=== PATIENT | male | born 1955 | race Caucasian/White ===

== ENCOUNTER 2022-05-14 08:24 | Outpatient (CLI) | payer MEDICARE, SELFPAY ==
[2022-05-14 09:12] LABS: Basophils Absolute Auto 0.1 K/mm3 (0.0-0.1); Basophils Percent Auto 0.8 % (0.2-1.2); Eosinophils Absolute Auto 0.3 K/mm3 (0-0.3); Eosinophils Percent Auto 4.9 % (0-4.4); Hemoglobin 15.1 g/dL (14.0-18.0); Immature Granulocyte Absolute 0.01 K/mm3 (0.00-0.031); Immature Granulocyte Percent A 0.2 % (0-0.5); Lymphocytes Absolute Auto 1.66 K/mm3 (0.9-3.2); Lymphocytes Percent Auto 26.4 % (18.3-44.2); Mean Corpuscular HGB Conc 32.1 g/dl (32-36); Mean Corpuscular Hemoglobin 28.7 pg (26-34); Mean Corpuscular Volume 89.2 fl (80-100); Mean Platelet Volume 9.8 fl (7.4-10.4); Monocytes Absolute Auto 0.8 K/mm3 (0.1-0.6); Monocytes Percent Auto 11.9 % (2.6-8.5); Neutrophils Absolute Auto 3.5 K/mm3 (1.3-6.7); Neutrophils Percent Auto 55.8 % (45.5-73.1); Platelet Count Result 204 k/mm3 (150-375); Red Blood Count 5.27 M/mm3 (4.6-6.20); Red Cell Distribution Width 13.7 % (11.5-14.5); White Blood Count 6.3 K/mm3 (4.5-10.0)
[2022-05-14 09:25] LABS: Alanine Aminotransferase 28 U/L (6-50); Albumin Level 4.2 g/dL (3.5-5.1); Alkaline Phosphatase 76 U/L (38-126); Anion Gap 4 mmol/L (8-16); Aspartate Amino Transferase 31 U/L (17-59); Bilirubin,Total 0.6 mg/dL (0.2-1.3); Blood Urea Nitrogen 20 mg/dL (9-20); Carbon Dioxide 29 mmol/L (22-30); Chloride 107 mmol/L (98-107); Cholesterol 164 mg/dL (0-200); Estimated Glomerular Filt Rate 60; Glucose 94 mg/dL (65-110); HDL Direct 30 mg/dL; Potassium 4.1 mmol/L (3.4-5.0); Sodium 140 mmol/L (137-145); Triglycerides 117 mg/dL (<150)
[2022-05-14 09:36] LABS: LDL Cholesterol Direct 98 mg/dL
[2022-05-14 09:56] LABS: Prostate Specific Antigen 0.5 ng/mL (< OR = 4.0)
[2022-05-14 10:31] LABS: Folic Acid 12.4 ng/mL (2.76->20)
== END 2022-05-14 08:25 | disposition home or self-care (01) ==
LOC: ANHLAB 08:34
PROVIDERS: PCP Physician Assistant; Visit Provider Physician Assistant
DX: R53.83 Other fatigue (principal); Z12.5 Encounter for screening for malignant neoplasm of prostate; E78.5 Hyperlipidemia, unspecified; E55.9 Vitamin D deficiency, unspecified
CPT/HCPCS: 36415; 80053; 80061; 82306; 82607; 82746; 84153; 84443; 85025; G0103

== ENCOUNTER 2022-05-15 07:29 | Outpatient (CLI) | payer MEDICARE, SELFPAY ==
--- NOTE | 2022-05-15 07:45 | ECHO_ITS ---
Patient Info Name: Josue Easton Age: 67 years : 1955 Gender: Male Ht: 70 in Wt: 195 lbs BSA: 2.11 m2 HR: 73 bpm BP: 163 / 98 mmHg Heart Rhythm: Sinus Rhythm Technical Quality: Good Exam Date: 05/15/2022 7:59 AM Exam Location: [facility] Pulmonary Patient Status: Outpatient Admit Date: 05/15/2022 Staff Ordering Physician: Shaka Dykes PA-C Digital Associate Media Director: Lissa Paris RDCS Attending Provider: Shaka Dykes PA-C Referring Physician: Jania COONEY; Exam Type: CA echo doppler color flow Study Info Indications I25.110 - Atherosclerotic heart disease of [place] coronary artery with unstable angina pectoris Complete two-dimensional, color flow and Doppler transthoracic echocardiogram is performed. Summary 1. Complete two-dimensional, color flow and Doppler transthoracic echocardiogram is performed. 2. Left ventricular chamber dimension is normal. 3. Left ventricular systolic function is normal, estimated at 55-60%. 4. The left ventricular diastolic function is grade I diastolic dysfunction. 5. E/e' 8 is minimally elevated. 6. Global longitudinal strain is normal at -20.8%. 7. There is mild aortic valve sclerosis. 8. The mitral valve has mildly calcified annulus. 9. There is trace tricuspid valve regurgitation. 10. No pulmonary hypertension, estimated pulmonary arterial systolic pressure is 21 mmHg. 11. Dilated inferior vena cava with >50% collapse upon inspiration consistent with elevated right atrial pressure, 10 mmHg. Left Ventricle E/e' 8 is minimally elevated. Global longitudinal strain is normal at -20.8%. Left ventricular chamber dimension is normal. Left ventricular systolic function is normal, estimated at 55-60%. The left ventricular diastolic function is grade I diastolic dysfunction. Right Ventricle Right ventricular systolic function is normal and with normal TAPSE 2.4 cm. Right ventricular chamber dimension is normal. Left Atria Left atrial chamber dimension is normal. Right Atria Right atrial chamber dimension is normal. Aortic Valve The aortic valve is trileaflet. There is mild aortic valve sclerosis. There is no aortic valve stenosis. There is no aortic valve regurgitation. Pulmonic Valve There is no pulmonic regurgitation. Mitral Valve The mitral valve has mildly calcified annulus. There is no mitral valve stenosis. There is no mitral valve regurgitation. Tricuspid Valve There is trace tricuspid valve regurgitation. No pulmonary hypertension, estimated pulmonary arterial systolic pressure is 21 mmHg. Pericardium/Pleural There is no pericardial effusion. Inferior Vena Cava Dilated inferior vena cava with >50% collapse upon inspiration consistent with elevated right atrial pressure, 10 mmHg. Aorta The aortic root size at the sinus of Valsalva is normal. Left Ventricular Outflow Tract Name Value Normal LVOT Doppler LVOT Peak Gradient 3 mmHg LVOT Mean Gradient 2 mmHg LVOT VTI 19 cm LVOT VTI/AV VTI Ratio 0.6 Pulmonic Valve Name
== END 2022-05-15 07:30 | disposition home or self-care (01) ==
LOC: ANHCARD 07:30
PROVIDERS: PCP Physician Assistant; Visit Provider Physician Assistant
DX: I25.10 Atherosclerotic heart disease of native coronary artery without angina pectoris (principal)
CPT/HCPCS: 93306

== ENCOUNTER 2022-10-29 09:10 | Outpatient (CLI) | payer MEDICARE, SELFPAY ==
--- NOTE | ~2022-10-29 | NM_ITS ---
EXAMINATION: NM catie stress w perfusion DATE: 10/29/2022 11:26 INDICATION: Chest pain, unspecified. TECHNIQUE: Rest images were obtained following intravenous administration of 10.6 mCi Tc99m tetrofosm in (Myoview). The patient was infused intravenously with Lexiscan (regadenoson). Then, 32.7 mCi Tc99m tetrofosmin (Myoview) was administered intravenously, and stress images were obtained. Data was kelly nstructed into short axis and horizontal and vertical long axis SPECT images. Gated SPECT images were also obtained. COMPARISON: None. FINDINGS: There is no definite reversible or fixed perfusion abnormality to suggest ischemia or infar ction. There is no segmental wall motion abnormality. Left ventricular ejection fraction measures 6 4%. IMPRESSION: 1. No definite ischemia or infarct. 2. Normal left ventricular ejection fraction measuring 64%. Reviewed, dictated and finalized at location A.
--- NOTE | 2022-10-29 09:20 | EST_ITS ---
Patient Info Name: Josue Easton Age: 67 years : 1955 Gender: Male Ht: 70 in Wt: 198 lbs BSA: 2.12 m2 HR: 47 bpm BP: 130 / 79 mmHg Heart Rhythm: Sinus Rhythm Exam Date: 10/29/2022 10:32 AM Exam Location: [facility] Stress Patient Status: Outpatient Admit Date: 10/29/2022 Staff Ordering Physician: Zak Bradley DO Attending Provider: Zak Bradley DO Exercise Technologist: Denise Morales CT Exam Type: CA stress catie w NM Study Info Indications R07.89 - Other chest pain A regadenoson stress test was performed. Summary 1. 1. Negative lexiscan stress test for ischemic ST changes by ECG criteria. 2. 2. Stable hemodynamics throughout the test. 3. 3. Nuclear scan to follow and will be reported separately. Please correlate with it. 4. 4. Patient informed of the above results. Protocol: Lexiscan Stress ECG Details Stage: REST Duration (min): 1 min : 4 sec HR (bpm): 50 SBP (mmHg): 130 DBP (mmHg): 79 Stage: REST Duration (min): 6 min : 51 sec HR (bpm): 52 SBP (mmHg): 130 DBP (mmHg): 79 Stage: STAGE 1 Duration (min): 1 min : 0 sec HR (bpm): 70 SBP (mmHg): 130 DBP (mmHg): 79 Stage: RECOVERY Duration (min): 1 min : 0 sec HR (bpm): 77 SBP (mmHg): 130 DBP (mmHg): 79 Stage: RECOVERY Duration (min): 2 min : 0 sec HR (bpm): 79 SBP (mmHg): 126 DBP (mmHg): 80 Stage: RECOVERY Duration (min): 2 min : 59 sec HR (bpm): 76 SBP (mmHg): 145 DBP (mmHg): 82 Rest HR: 52 bpm Peak HR: 80 bpm Rest Sys BP: 130 mmHg Peak Sys BP: 145 mmHg Max Pred HR: 151 bpm % Max Pred HR: 53 % Target HR: 128 bpm Max RPP: 11,600 bpm*mmHg Termination Reason: Completed protocol Cardiac Symptoms: Shortness of breath Total Time: 1 min : 0 sec Rest Khan BP: 79 mmHg Peak Khan BP: 82 mmHg Total Dose: 0.4 mg Resting ECG Sinus bradycardia, first degree AV block, RBBB, cannot r/o septal infarct. Stress ECG No ST changes. Arrhythmias None. Report Signatures
== END 2022-10-29 09:11 | disposition home or self-care (01) ==
PROVIDERS: PCP Physician Assistant; Visit Provider Internal Medicine Cardiovascular Disease
DX: R07.9 Chest pain, unspecified (principal)
CPT/HCPCS: 78452; 93017; A9502; J2785

== ENCOUNTER 2024-07-23 06:58 | Emergency (ER) | payer MEDICARE, SELFPAY ==
[2024-07-23] VITALS (8 sets, daily range): BP systolic 128–194; BP diastolic 60–85; PULSE 37–97; RESP 14–23; TEMP 36.8; O2SAT 96–100
[2024-07-23] MEDS: SODIUM CHLORIDE 0.9% IV 1,000 ML 999 ML IV CONT (08:09)
[2024-07-23 08:14] LABS: Alveolar/Arterial O2 Gradient 37.9 mmHg; Base Excess ABG -3.2 mEq/l (+/-2.0); Device ROOM AIR; Fractional Inspired Oxygen 21 %; HCO3 ABG 20.7 mEq/l (22.0-26.0); Modified Allen's Test Pass; Oxygen Content ABG 18.4 %vol (16.0-22.0); Oxygen Saturation ABG 94.5 % (95.0-100.0); Oxyhemoglobin 90.9 % THb (90.0-100.0); PO2 ABG 71.1 mmHg (80.0-100.0); PO2 FiO2 Ratio Arterial Blood 3.39 %; Site Drawn RIGHT RADIAL; Total Hemoglobin 14.4 g/dL (12.0-18.0); pH ABG 7.403 (7.350-7.450)
--- NOTE | 2024-07-23 08:17 | ED.GENADULT ---
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 Patient says the visual hallucinations started several days ago. He describes them as white lights colors, sometimes they are vivid like dogs or corn alexander. The patient is aware that they are not real. While they are not particularly distressing he does not like them. The patient has no current complaints such as fevers chills headache, trauma, chest pain, difficulty breathing, abdominal pain, urinary symptoms, nausea vomiting or diarrhea. Related Data Home Medications ?Medication ?Instructions ?Recorded ?Confirmed ?Last Taken ?Type cholecalciferol (vitamin D3) 25 25 mcg PO DAILY 05/01/22 12/14/22 Unknown History mcg (1,000 unit) capsule krill oil 500 mg capsule mg PO 05/01/22 12/14/22 Unknown History aspirin 81 mg tablet,delayed 81 mg PO DAILY 12/14/22 12/14/22 Unknown History release (Adult Aspirin Regimen) Allergies Allergy/AdvReac Type Severity Reaction Status Date / Time No Known Allergies Allergy Verified 07/23/24 07:16 [facility] Past Medical History Medical History Choroideremia Bilateral tinnitus Heart disease Coronary artery disease Anxiety Family History Family History Father Heart disease Mother Blind Social History Social History Smoking packs per day: 0.25 Smoking cigarettes per day: 5.0 Years smoked: 30 Smoking pack-years: 7.50 Smoking status: Current every day smoker Alcohol intake: current Substance use: unknown Substance use type: does not use Lack of Transportation: No Lack of Food: Never True Current Housing: I Have Housing Concerned About Future Housing: No Difficulty Paying Gas/Electric Bills: No Difficulty Paying for Meds: No Currently Unemployed: No Education: Trade/Vocational Certificate Difficulty w/ Childcare or Family Care: No Exam Narrative: APPEARANCE: No apparent distress. A&O x3 Head: atraumatic. EYES: EOMI, NOSE: Atraumatic NECK: Trachea midline RESPIRATORY: No increased rate of breathing clear to auscultation CARDIOVASCULAR: Irregular, no peripheral edema ABDOMINAL: Non-distended soft nontender MUSCULOSKELETAl: No obvious deformities NEURO: Alert. Patient is blind cranial nerves 3 4 and 6 not assessed. The rest the cranial nerves are grossly intact Sensation light touch, motor function, cerebellar function intact for 4 extremities. Gait exam was deferred SKIN:: Warm, dry. Normal color PSYCHIATRIC: Normal affect Course Vital Signs Vital signs: Vital Signs Temperature 98.2 F 07/23/24 07:03 Pulse Rate 73 07/23/24 07:03 Respiratory Rate 18 07/23/24 07:03 Blood Pressure 192/60 H 07/23/24 07:03 Pulse Oximetry 100 07/23/24 07:03 Oxygen Delivery Room Air 07/23/24 07:03 Temperature 98.2 F 07/23/24 07:03 Pulse Rate 37 L 07/23/24 11:57 Respiratory Rate 18 07/23/24 11:57 Blood Pressure 152/76 H 07/23/24 11:57 Pulse Oximetry 98 07/23/24 11:57 Oxygen Delivery Room Air 07/23/24 07:03 Medical Decision Making [facility] Narrative Medical decision making narrative: -Course: 69-year-old blind male presenting with vivid hallucinations. His neurologic exam outside of his blindness is normal. He has no other neurologic symptoms or evidence of stroke. His CT head was unremarkable. His infectious workup was negative. Tox panel was significant for cannabinoids but no other findings. 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 No intervention at this time. Patient has close follow-up with his ethnoarchaeology professor and will be given follow-up with a neurologist as well. Incidentally the patient was found have a Mobitz type 2 heart block. He has not had any lightheadedness or syncope. The patient does not want to be transferred today to get a pacemaker placed. I discussed this with his concrete paving supervisor Dr. Bradley who will help him arrange appropriate follow-up. Patient will be leaving against medical advice due to his high grade AV block. When asked why he wouldn't wait for transfer patient states that his quality of life is poor due to his blindness. He does not want to be in the hospital any longer. He understands that his heart could stop if he does not get a pacemaker placed. -DDX includes but is not limited to: Delirium due to infection, dementia, Jose Elias Bonnet syndrome -Co-morbidities complicating care: choroidemia, htn Vital Signs Vital Signs: Vital Signs Temperature 98.2 F 07/23/24 07:03 Pulse Rate 73 07/23/24 07:03 Respiratory Rate 18 07/23/24 07:03 Blood Pressure 192/60 H 07/23/24 07:03 Pulse Oximetry 100 07/23/24 07:03 Oxygen Delivery Room Air 07/23/24 07:03 Temperature 98.2 F 07/23/24 07:03 Pulse Rate 37 L 07/23/24 11:57 Respiratory Rate 18 07/23/24 11:57 Blood Pressure 152/76 H 07/23/24 11:57 Pulse Oximetry 98 07/23/24 11:57 Oxygen Delivery Room Air 07/23/24 07:03 Lab Data 07/23/24 08:21 07/23/24 08:21 Labs: Lab Results 07/23/24 07/23/24 Range/Units 08:21 11:17 WBC 6.1 (4.5-10.0) K/mm3 RBC 4.97 (4.6-6.20) M/mm3 Hgb 14.2 (14.0-18.0) g/dL Hct 44.0 (42.0-52.0) % MCV 88.5 (80-100) fl MCH 28.6 (26-34) pg MCHC 32.3 (32-36) g/dl RDW 14.1 (11.5-14.5) % Plt Count 165 (150-375) k/mm3 MPV 10.9 H (7.4-10.4) fl Immature Gran % (Auto) 0.3 (0-0.5) % Neut % (Auto) 66.8 (45.5-73.1) % Lymph % (Auto) 17.3 L (18.3-44.2) % Monroe % (Auto) 10.5 H (2.6-8.5) % Eos % (Auto) 4.4 (0-4.4) % Baso % (Auto) 0.7 (0.2-1.2) % Lymph # (Auto) 1.05 (0.9-3.2) K/mm3 Monroe # (Auto) 0.6 (0.1-0.6) K/mm3 Eos # (Auto) 0.3 (0-0.3) K/mm3 Baso # (Auto) 0.0 (0.0-0.1) K/mm3 Abs Immat Gran (auto) 0.02 (0.00-0.031) K/mm3 Absolute Neuts (auto) 4.1 (1.3-6.7) K/mm3 Absolute Nucleated RBC 0.000 (0.0-0.012) K/mm3 Nucleated RBC % 0.0 (0.0-0.2) % PT 14.1 (11.1-14.7) Seconds INR 1.0 APTT 29.9 (22.3-36.8) Seconds Sodium 140 (137-145) mmol/L Potassium 4.4 (3.4-5.0) mmol/L Chloride 109 H (98-107) mmol/L Carbon Dioxide 24 (22-30) mmol/L Anion Gap 7 (4-12) mmol/L BUN 28 H (9-20) mg/dL Creatinine 1.19 (0.7-1.3) mg/dL Estim Creat Clear Calc 52 ml/min Estimated GFR 60 (59 - ) Glucose 96 (65-110) mg/dL Lactic Acid 0.8 (0.7-2.0) mmol/L Calcium 8.9 (8.4-10.2) mg/dL Phosphorus 3.7 (2.5-4.5) mg/dL Magnesium 1.9 (1.6-2.3) mg/dL Total Bilirubin 0.8 (0.2-1.3) mg/dL AST 25 (17-59) U/L ALT 23 (6-50) U/L Alkaline Phosphatase 80 (38-126) U/L Troponin I < 0.012 < 0.012 (0.000-0.034) ng/mL NT-Pro-B Natriuret Pep 1010 H (19.9-100) pg/mL Total Protein 7.0 (6.3-8.2) g/dL Albumin 3.7 (3.5-5.1) g/dL Lipase 467 H (23-300) U/L TSH (Reflex) 1.870 (0.465-4.68) uIU/mL Urine Color Yellow (Yellow) Urine Appearance Clear (Clear) Urine pH 5.5 (5.0-9.0) Ur Specific [place] 1.024 (1.001-1.035) Urine Protein 1+ H (Negative) mg/dL Urine Glucose (UA) Negative (Negative) mg/dL Urine Ketones Negative (Negative) mg/dL Ur Blood (Man) Trace (Negative) Urine Nitrate Negative (Negative) Urine Bilirubin Negative (Negative) Urine Urobilinogen 0.2 (<2.0) mg/dL Leukocyte Esterase Rfl Negative (Negative) SAYDA/UL Urine RBC 3-5 H (0-2) /hpf Urine WBC 0-5 (0-3) /hpf Ur Squamous Epith Cells None seen (Few) /hpf Urine Bacteria None seen /hpf Urine Casts 0-2 Urine Opiates Screen Negative (Negative) Urine Methadone Screen Negative (Negative) Ur Barbiturates Screen Negative (Negative) Ur Phencyclidine Scrn Negative (Negative) Ur Amphetamine Screen Negative (Negative) U Benzodiazepines Scrn Negative (Negative) Urine Cocaine Screen Negative (Negative) U Cannabinoids Screen Positive A (Negative) Ethyl Alcohol < 10 (<10) mg/dL Influenza A (RT-PCR) Negative (Negative) Influenza B (RT-PCR) Negative (Negative) RSV (RT-PCR) Negative (Negative) SARS-CoV-2 RNA (RT-PCR) Negative (Negative) ABG Data ABG results: 07/23/24 08:06 Puncture Site Right radial ABG pH 7.403 ABG pCO2 34.0 L ABG pO2 71.1 L ABG PO2/FiO2 Ratio 3.39 ABG HCO3 20.7 L ABG O2 Saturation 94.5 L ABG O2 Content 18.4 ABG Base Excess -3.2 A-a Gradient 37.9 Oxyhemoglobin 90.9 Total Hemoglobin 14.4 O2 Delivery Device Room air O2 Liters/Min Not Reportable FiO2 21 Discharge Plan Discharge Clinical Impression: Hallucinations, Jose Elias Bonnet syndrome, AV block, Mobitz II Patient Disposition: Left Against Medical Advice Condition: Guarded Prognosis Instructions: Heart Block (ED), Nonpsychiatric Hallucinations (ED) Additional Instructions: You were seen in the emergency department for hallucinations. Your workup here including CT of the head, laboratory studies, and infectious workup were negative. I believe this is Jose Elias Bonnet syndrome. Please follow-up with your ethnoarchaeology professor and the neurologist listed below for further workup. You were also found have a Mobitz 2 heart block. I recommended transfer for immediate pacemaker placement and you have declined. You have an increased risk of sudden cardiac . Please call Dr. Bradley immediately to arrange appropriate follow-up. If you develop dizziness, lightheadedness, or fainting please return to the ED for re-evaluation immediately. Please STOP your metoprolol. Dr. Bradley can prescribe and different hypertension medication. Patient Language: Singaporean Prescriptions: No Action krill oil 500 mg capsule PO cholecalciferol (vitamin D3) 25 mcg (1,000 unit) capsule 25 mcg PO DAILY aspirin [Adult Aspirin Regimen] 81 mg tablet,delayed release (DR/EC) 81 mg PO DAILY metoprolol tartrate 25 mg tablet See Rx Instructions .ROUTE .COMPLEX Qty: 180 2RF Dose Instruction: TAKE 1 TABLET BY MOUTH TWICE DAILY Rx Instructions: TAKE 1 TABLET BY MOUTH TWICE DAILY atorvastatin 40 mg tablet See Rx Instructions .ROUTE .COMPLEX Qty: 90 2RF Dose Instruction: TAKE 1 TABLET BY MOUTH DAILY Rx Instructions: TAKE 1 TABLET BY MOUTH DAILY Follow-up/Referrals: Zak Bradley DO [Physician] - 1 Day (Mobitz II) Kelly Dodd MD [Physician] - 1 Week (Hallucinations) Andre Steen DO [Primary Care Provider] -
[2024-07-23 08:30] LABS: Basophils Percent Auto 0.7 % (0.2-1.2); Eosinophils Absolute Auto 0.3 K/mm3 (0-0.3); Eosinophils Percent Auto 4.4 % (0-4.4); Hemoglobin 14.2 g/dL (14.0-18.0); Immature Granulocyte Absolute 0.02 K/mm3 (0.00-0.031); Immature Granulocyte Percent A 0.3 % (0-0.5); Lymphocytes Absolute Auto 1.05 K/mm3 (0.9-3.2); Lymphocytes Percent Auto 17.3 % (18.3-44.2); Mean Corpuscular HGB Conc 32.3 g/dl (32-36); Mean Corpuscular Hemoglobin 28.6 pg (26-34); Mean Corpuscular Volume 88.5 fl (80-100); Mean Platelet Volume 10.9 fl (7.4-10.4); Monocytes Absolute Auto 0.6 K/mm3 (0.1-0.6); Monocytes Percent Auto 10.5 % (2.6-8.5); Neutrophils Absolute Auto 4.1 K/mm3 (1.3-6.7); Neutrophils Percent Auto 66.8 % (45.5-73.1); Platelet Count Result 165 k/mm3 (150-375); Red Blood Count 4.97 M/mm3 (4.6-6.20); Red Cell Distribution Width 14.1 % (11.5-14.5); White Blood Count 6.1 K/mm3 (4.5-10.0)
[2024-07-23 08:39] LABS: Add Urine Microscopic? YES; Appearance Urine Clear (Clear); Bacteria Urine None Seen /hpf; Bilirubin Urine Negative (Negative); Blood Urine Trace (Negative); Color Urine Yellow (Yellow); Glucose Urine UA Negative (Negative); Ketones Urine Negative (Negative); Leukocyte Esterase Ur Negative LEU/UL (Negative); Nitrate Urine Negative (Negative); Non Pathogenic Casts 0-2; Protein Urine 1+ mg/dL (Negative); Specific Grav Ur 1.024 (1.001-1.035); Squamous Epithelial Cell Urine None Seen /hpf (Few); Urobilinogen Urine 0.2 mg/dL (<2.0); WBC Urine 0-5 /hpf (0-3); pH Urine 5.5 (5.0-9.0)
[2024-07-23 08:40] LABS: Alanine Aminotransferase 23 U/L (6-50); Albumin Level 3.7 g/dL (3.5-5.1); Alkaline Phosphatase 80 U/L (38-126); Anion Gap 7 mmol/L (4-12); Aspartate Amino Transferase 25 U/L (17-59); Bilirubin,Total 0.8 mg/dL (0.2-1.3); Blood Urea Nitrogen 28 mg/dL (9-20); Calcium 8.9 mg/dL (8.4-10.2); Carbon Dioxide 24 mmol/L (22-30); Chloride 109 mmol/L (98-107); Estimated CRCL calculation 52 ml/min; Estimated Glomerular Filt Rate 60; Glucose 96 mg/dL (65-110); Lactic Acid Reflex 0.8 mmol/L (0.7-2.0); Lipase 467 U/L (23-300); Magnesium 1.9 mg/dL (1.6-2.3); Phosphorus 3.7 mg/dL (2.5-4.5); Potassium 4.4 mmol/L (3.4-5.0); Sodium 140 mmol/L (137-145)
[2024-07-23 08:41] LABS: Ethanol < 10 mg/dL (<10)
[2024-07-23] MEDS: hydrALAZINE HCL 20 MG/ML VIAL 10 MG IV PUSH (08:41)
[2024-07-23 08:44] LABS: Prothrombin Time 14.1 Seconds (11.1-14.7)
[2024-07-23 08:45] LABS: Partial Thromboplastin Time 29.9 Seconds (22.3-36.8)
[2024-07-23 08:51] LABS: Amphetamine Screen Urine Negative (Negative); Barbiturate Screen Urine Negative (Negative); Benzodiazepines Screen Urine Negative (Negative); Cannabinoid Screen Urine Positive (Negative); Cocaine Screen Urine Negative (Negative); Methadone Screen Urine Negative (Negative); Opiate Screen Urine Negative (Negative); Phencyclidine Screen Urine Negative (Negative)
[2024-07-23 09:06] LABS: Influenza A QL RT-PCR Negative (Negative); Influenza B QL RT-PCR Negative (Negative); RSV RNA, RT-PCR Negative (Negative); SARS-CoV-2 RNA PCR Negative (Negative)
[2024-07-23 09:13] LABS: NT Pro B Type Natriuretic Pept 1010 pg/mL (19.9-100); Troponin I < 0.012 ng/mL (0.000-0.034)
--- NOTE | 2024-07-23 11:31 | PC.NURSE ---
Patient considering leaving AMA. This RN and Dr Flores went over risks of leaving. Patient states he would like some time to speak with his . I informed patient I will come back and check on him and his decision after giving him time.
[2024-07-23 11:52] LABS: Troponin I < 0.012 ng/mL (0.000-0.034)
== END 2024-07-23 12:27 | disposition left against medical advice (07) ==
PROVIDERS: Emergency Provider Emergency Medicine; PCP Internal Medicine
DX: H53.16 Psychophysical visual disturbances (principal); I44.1 Atrioventricular block, second degree; H31.2 Hereditary choroidal dystrophy; I10 Essential (primary) hypertension; I25.10 Atherosclerotic heart disease of native coronary artery without angina pectoris; F17.210 Nicotine dependence, cigarettes, uncomplicated; I45.10 Unspecified right bundle-branch block; R00.1 Bradycardia, unspecified; I44.2 Atrioventricular block, complete
CPT/HCPCS: 36415; 36600; 70450; 71045; 80053; 80307; 81001; 82077; 82805; 83605; 83690; 83735; 83880; 84100; 84443; 84484; 85018; 85025; 85610; 85730; 87637; 93005; 96361; 96374; 99284; J0360; J7030